=== PATIENT | male | born 1955 ===

== ENCOUNTER 2017-09-23 10:59 | Inpatient (IN) | payer OTHER ==
[2017-09-23] MEDS: SOD CHLORIDE 0.9% 1,000 ML IV ×2 (11:55→18:37)
[2017-09-23] MEDS: LACTATED RINGER'S 1,000 ML IV (11:55)
[2017-09-23 12:02] LABS: ADD MAN DIFF? NO
[2017-09-23 12:05] LABS: ABNORMAL IP MESSAGE 1; BASOPHILS % 0.3 % (0.0-2.0); HEMATOCRIT 48.2 % (42.0-52.0); HEMOGLOBIN 16.8 g/dl (14.0-18.0); LYMPHOCYTES % 5.1 % (15.0-51.0); MEAN CORPUSCULAR HEMOGLOBIN 30.5 pg (29.0-33.0); MEAN CORPUSCULAR HGB CONC 34.9 g/dl (32.0-37.0); MEAN CORPUSCULAR VOLUME 87.6 fl (82.0-101.0); MEAN PLATELET VOLUME 9.9 fl (7.4-10.4); MONOCYTES % 6.3 % (0.0-11.0); NEUTROPHIL # 15.4 10^3/ul (1.6-7.5); NEUTROPHILS % 87.5 % (39.0-77.0); PLATELET COUNT 341 10^3/UL (140-415); POSITIVE DIFF @See below; RED CELL DISTRIBUTION WIDTH 12.2 % (11.5-14.5)
[2017-09-23 12:05] LABS: WHITE BLOOD COUNT 17.6 10^3/ul (4.8-10.8)
[2017-09-23 12:22] LABS: ALANINE AMINOTRANSFERASE 23 IU/L (13-69); ALBUMIN 3.9 g/dl (3.3-4.9); ALKALINE PHOSPHATASE 93 IU/L (42-121); ANION GAP 16 (8-16); ASPARTATE AMINO TRANSFERASE 12 IU/L (15-46); BILIRUBIN,INDIRECT 0.8 mg/dl (0-1.1); BILIRUBIN,TOTAL 0.8 mg/dl (0.2-1.3); BLOOD UREA NITROGEN 8 mg/dl (7-20); CALCIUM 9.3 mg/dl (8.4-10.2); CARBON DIOXIDE 30 mmol/L (21-31); CHLORIDE 94 mmol/L (97-110); CREATININE 0.58 mg/dl (0.61-1.24); GLUCOSE 331 mg/dl (70-220); LIPASE 21 U/L (23-300); MAGNESIUM 1.8 mg/dl (1.7-2.5); PHOSPHORUS 4.3 mg/dl (2.5-4.9); POTASSIUM 3.8 mmol/L (3.5-5.1); SODIUM 136 mmol/L (135-144); TOTAL PROTEIN 6.9 g/dl (6.1-8.1)
[2017-09-23 12:39] LABS: TROPONIN-I < 0.012 ng/ml (0.00-0.12)
[2017-09-23 12:41] LABS: LACTIC ACID 3.1 mmol/L (0.5-2.0)
[2017-09-23 13:03] LABS: BAND NEUTROPHILS #M 3.8 10^3/ul (0.0-0.6); BAND NEUTROPHILS % (M) 22 % (0-4); LYMPHOCYTES # 0.2 10^3/ul (0.8-2.9); LYMPHOCYTES #M 0.1 10^3/ul (0.8-2.9); LYMPHOCYTES % (M) 1 % (15-51); MONOCYTE #M 1.7 10^3/ul (0.3-0.9); MONOCYTES % (M) 10 % (0-11); SEG NEUT #M 12.5 10^3/ul (1.7-7.5); SEGMENTED NEUTROPHILS (M) % 67 % (39-77)
[2017-09-23 13:04] LABS: MONOCYTE # 1.8 10^3/ul (0.3-0.9)
[2017-09-23 13:05] LABS: ANISOCYTOSIS 1+ (0-0); MICROCYTOSIS 1+ (0-0)
[2017-09-23] MEDS: PIPER-TAZO 3.375 GM IV (PMX) 50 ML IVPB ×2 (13:08→18:37)
[2017-09-23 13:35] LABS: MODE ROOM AIR; MetHgb Venous 0.3 %; Sample Type Blood venous; Site VENOUS LINE; Venous COHb 1.2 %; Venous Fraction OxyHgb 44.2 %; Venous Oxygen Sat 44.9 mmHG (55.0-75.0); Venous Total Hemglobin 15.9 g/dl
[2017-09-23 14:09] LABS: LACTIC ACID 2.9 mmol/L (0.5-2.0)
[2017-09-23] MEDS ORDERED: ACETAMINOPHEN 325 MG TAB PO (14:30)
[2017-09-23] MEDS ORDERED: ONDANSETRON 4 MG INJ IV (14:30)
[2017-09-23] MEDS ORDERED: NACL 0.9% 3 ML SYG IV (16:00)
[2017-09-23] MEDS: SOD CHLORIDE 0.9% 100 ML (16:58)
[2017-09-23] MEDS: IODIXANOL LOCM 100 ML BTL (16:58)
[2017-09-23] MEDS ORDERED: GLUCOSE GEL 15 GRAM TUBE PO ×2 (17:00)
[2017-09-23] MEDS ORDERED: DEXTROSE 50% 50 ML SYRINGE IV ×2 (17:00)
[2017-09-23] MEDS ORDERED: GLUCOSE GEL 15 GRAM TUBE BUCCAL (17:00)
[2017-09-23] MEDS ORDERED: GLUCAGON 1 MG INJ IM (17:00)
[2017-09-23] MEDS: INSULIN ASPART [NOVOLOG] 3 ML PEN SC ×3 (18:00→21:00)
[2017-09-23] MEDS: INSULIN GLARGINE [LANtus] 3 ML PEN SC (21:36)
[2017-09-23 22:52] LABS: ADD UMIC NO; UR ASCORBIC ACID 40 mg/dL (NEGATIVE); UR BILIRUBIN (Dip) NEGATIVE (NEGATIVE); UR BLOOD (Dip) NEGATIVE (NEGATIVE); UR CLARITY CLEAR (CLEAR); UR COLOR YELLOW (YELLOW); UR GLUCOSE (Dip) 3+ mg/dL (NEGATIVE); UR KETONES (Dip) 1+ mg/dL (NEGATIVE); UR LEUKOCYTE ESTERASE (Dip) NEGATIVE Leu/ul (NEGATIVE); UR NITRITE (Dip) NEGATIVE (NEGATIVE); UR SPECIFIC GRAVITY (Dip) 1.051 (1.003-1.030); UR TOTAL PROTEIN (Dip) NEGATIVE (NEGATIVE); UR UROBILINOGEN (Dip) NEGATIVE (NEGATIVE)
[2017-09-23] MEDS: DEXTROSE 5%-0.45% NACL 1,000 ML IV (23:47)
[2017-09-24 01:26] LABS: LACTIC ACID 1.3 mmol/L (0.5-2.0)
[2017-09-24] MEDS: PIPER-TAZO 3.375 GM IV (PMX) 50 ML IVPB ×2 (01:32→10:12)
[2017-09-24] MEDS: ACCU-CHEK XX (02:00)
[2017-09-24 06:31] LABS: WHITE BLOOD COUNT 7.5 10^3/ul (4.8-10.8)
[2017-09-24 06:31] LABS: HEMATOCRIT 38.6 % (42.0-52.0); HEMOGLOBIN 13.4 g/dl (14.0-18.0); MEAN CORPUSCULAR HEMOGLOBIN 30.2 pg (29.0-33.0); MEAN CORPUSCULAR HGB CONC 34.7 g/dl (32.0-37.0); MEAN CORPUSCULAR VOLUME 87.1 fl (82.0-101.0); MEAN PLATELET VOLUME 9.8 fl (7.4-10.4); PLATELET COUNT 266 10^3/UL (140-415); POSITIVE DIFF @See below; RED BLOOD COUNT 4.43 10^6/ul (4.70-6.10)
[2017-09-24 06:38] LABS: ADD MAN DIFF? YES
[2017-09-24] MEDS: INSULIN ASPART [NOVOLOG] 3 ML PEN SC ×6 (08:33→20:47)
[2017-09-24] MEDS: ENOXAPARIN 40 MG/0.4 ML SYG SC (08:34)
[2017-09-24 08:48] LABS: ALANINE AMINOTRANSFERASE 25 IU/L (13-69); ALBUMIN 2.3 g/dl (3.3-4.9); ALBUMIN/GLOBULIN RATIO 0.85; ALKALINE PHOSPHATASE 52 IU/L (42-121); ANION GAP 7 (8-16); ASPARTATE AMINO TRANSFERASE 13 IU/L (15-46); BILIRUBIN,INDIRECT 0.3 mg/dl (0-1.1); BILIRUBIN,TOTAL 0.3 mg/dl (0.2-1.3); BLOOD UREA NITROGEN 11 mg/dl (7-20); CALCIUM 7.9 mg/dl (8.4-10.2); CARBON DIOXIDE 27 mmol/L (21-31); CHLORIDE 103 mmol/L (97-110); GLUCOSE 130 mg/dl (70-220); SODIUM 134 mmol/L (135-144)
[2017-09-24 09:30] LABS: ANISOCYTOSIS 1+ (0-0); BAND NEUTROPHILS #M 2.8 10^3/ul (0.0-0.6); BAND NEUTROPHILS % (M) 38 % (0-4); BURR CELLS 1+ (0-0); HYPOCHROMASIA 1+ (0-0); LYMPHOCYTES #M 0.9 10^3/ul (0.8-2.9); LYMPHOCYTES % (M) 13 % (15-51); MONOCYTE #M 0.5 10^3/ul (0.3-0.9); MONOCYTES % (M) 7 % (0-11); MYELOCYTES % (M) 1 % (0-0); PLATELET ESTIMATE NORMAL; SEG NEUT #M 3.1 10^3/ul (1.7-7.5); SEGMENTED NEUTROPHILS (M) % 39 % (39-77); SMUDGE%M 2 % (0-0)
[2017-09-24] MEDS: DEXTROSE 5%-0.45% NACL 1,000 ML IV ×2 (13:48→20:24)
[2017-09-24] MEDS: NICOTINE (14 MG/24 HR) PATCH TRANSDERM (14:00)
[2017-09-24 14:03] LABS: HEMOGLOBIN A1C 12.4 % (0-5.9)
[2017-09-24 15:02] LABS: HAAIG REFLEX REFLEX FILED
[2017-09-24 15:07] LABS: HIV 1&2 ANTIBODY NEGATIVE (NEGATIVE)
[2017-09-24] MEDS: POTASSIUM CHLORIDE (SR) 20 MEQ TAB PO ×2 (15:07→17:11)
[2017-09-24 16:09] LABS: PREALBUMIN 6.4 mg/dl (17.6-36.0)
[2017-09-24 16:53] LABS: HEPATITIS B CORE ANTIBODY NEGATIVE (NEGATIVE); HEPATITIS C VIRAL ANTIBODY NEGATIVE (NEGATIVE)
[2017-09-24] MEDS: BISACODYL (EC) 5 MG TAB PO (17:11)
[2017-09-24] MEDS: REPAGLINIDE 1 MG TAB PO (17:40)
[2017-09-24] MEDS: MAGNESIUM CITRATE 300 ML BTL PO (17:40)
[2017-09-24] MEDS ORDERED: metFORMIN 500 MG TAB PO (17:50)
[2017-09-24 18:15] LABS: HEPATITIS B SURFACE ANTIGEN NEGATIVE (NEGATIVE)
[2017-09-24] MEDS: CIPROFLOXACIN 400MG/D5W 200 ML IVPB (20:25)
[2017-09-24] MEDS: POLYETHYLENE GLYCOL 3350 119 GM POWDER PO (20:25)
[2017-09-24] MEDS: INSULIN GLARGINE [LANtus] 3 ML PEN SC (20:36)
[2017-09-24] MEDS: metroNIDAZOLE 500 MG/NS (PMX) 100 ML IVPB (21:59)
[2017-09-25] MEDS: ACCU-CHEK XX (02:44)
[2017-09-25] MEDS: DEXTROSE 5%-0.45% NACL 1,000 ML IV ×3 (04:06→18:12)
[2017-09-25] MEDS: POLYETHYLENE GLYCOL 3350 119 GM POWDER PO (05:03)
[2017-09-25] MEDS: metroNIDAZOLE 500 MG/NS (PMX) 100 ML IVPB ×4 (05:03→22:25)
[2017-09-25] MEDS: BISACODYL (EC) 5 MG TAB PO (06:34)
[2017-09-25 07:24] LABS: ANION GAP 8 (8-16); BLOOD UREA NITROGEN 9 mg/dl (7-20); CALCIUM 7.8 mg/dl (8.4-10.2); CARBON DIOXIDE 28 mmol/L (21-31); CHLORIDE 103 mmol/L (97-110); CREATININE 0.47 mg/dl (0.61-1.24); GLUCOSE 90 mg/dl (70-220); SODIUM 136 mmol/L (135-144)
[2017-09-25 07:33] LABS: POTASSIUM 2.9 mmol/L (3.5-5.1)
[2017-09-25] MEDS: REPAGLINIDE 1 MG TAB PO ×3 (08:00→17:42)
[2017-09-25] MEDS: INSULIN ASPART [NOVOLOG] 3 ML PEN SC ×4 (08:15→21:21)
[2017-09-25] MEDS: ENOXAPARIN 40 MG/0.4 ML SYG SC (08:31)
[2017-09-25] MEDS: NICOTINE (14 MG/24 HR) PATCH TRANSDERM (09:00)
[2017-09-25] MEDS: CIPROFLOXACIN 400MG/D5W 200 ML IVPB ×2 (09:11→21:11)
[2017-09-25] MEDS: POTASSIUM CHLORIDE 30 MEQ in DEXTROSE 5% 250 ML IVPB (09:18)
[2017-09-25] MEDS: POTASSIUM CHLORIDE 20 MEQ in DEXTROSE 5% 100 ML IVPB (12:40)
[2017-09-25 13:42] LABS: POTASSIUM 3.5 mmol/L (3.5-5.1)
[2017-09-25] MEDS: INSULIN GLARGINE [LANtus] 3 ML PEN SC (21:21)
[2017-09-26] MEDS: ACCU-CHEK XX (01:53)
[2017-09-26] MEDS ORDERED: VITAMIN A & D 5 GM OINT PACKET TOP (04:46)
[2017-09-26] MEDS: metroNIDAZOLE 500 MG/NS (PMX) 100 ML IVPB ×2 (05:48→13:58)
[2017-09-26 05:54] LABS: ADD MAN DIFF? NO
[2017-09-26 06:01] LABS: BASOPHILS % 0.3 % (0.0-2.0); EOSINOPHILS % 0.5 % (0.0-7.0); HEMOGLOBIN 13.9 g/dl (14.0-18.0); LYMPHOCYTES # 1.4 10^3/ul (0.8-2.9); MEAN CORPUSCULAR HEMOGLOBIN 29.8 pg (29.0-33.0); MEAN CORPUSCULAR HGB CONC 34.8 g/dl (32.0-37.0); MEAN CORPUSCULAR VOLUME 85.7 fl (82.0-101.0); MEAN PLATELET VOLUME 9.7 fl (7.4-10.4); MONOCYTE # 0.4 10^3/ul (0.3-0.9); MONOCYTES % 6.4 % (0.0-11.0); NEUTROPHIL # 4.1 10^3/ul (1.6-7.5); NEUTROPHILS % 69.3 % (39.0-77.0); PLATELET COUNT 313 10^3/UL (140-415); RED BLOOD COUNT 4.67 10^6/ul (4.70-6.10); RED CELL DISTRIBUTION WIDTH 11.6 % (11.5-14.5)
[2017-09-26 06:27] LABS: ANION GAP 9 (8-16); BLOOD UREA NITROGEN 8 mg/dl (7-20); CALCIUM 7.9 mg/dl (8.4-10.2); CARBON DIOXIDE 28 mmol/L (21-31); CHLORIDE 102 mmol/L (97-110); CREATININE 0.46 mg/dl (0.61-1.24); GLUCOSE 125 mg/dl (70-220); MAGNESIUM 1.8 mg/dl (1.7-2.5); POTASSIUM 3.2 mmol/L (3.5-5.1); SODIUM 136 mmol/L (135-144)
[2017-09-26] MEDS: INSULIN ASPART [NOVOLOG] 3 ML PEN SC ×2 (07:59→12:17)
[2017-09-26] MEDS: REPAGLINIDE 1 MG TAB PO ×2 (08:06→12:36)
[2017-09-26] MEDS: CIPROFLOXACIN 400MG/D5W 200 ML IVPB (08:06)
[2017-09-26] MEDS: ENOXAPARIN 40 MG/0.4 ML SYG SC (08:08)
[2017-09-26] MEDS: NICOTINE (14 MG/24 HR) PATCH TRANSDERM (08:09)
[2017-09-26] MEDS: DEXTROSE 5%-0.45% NACL 1,000 ML IV (08:09)
[2017-09-26] MEDS ORDERED: POTASSIUM CHLORIDE 30 MEQ in SOD CHLORIDE 0.9% 150 ML IVPB (12:30)
[2017-09-26] MEDS ORDERED: LOPERAMIDE 2 MG CAP PO (12:30)
[2017-09-26] MEDS: POTASSIUM CHLORIDE 50 ML IVPB ×2 (13:16→14:00)
[2017-09-26] MEDS: POTASSIUM CHLORIDE (SR) 20 MEQ TAB PO (13:58)
[2017-09-26] MEDS ORDERED: INSULIN GLARGINE [LANtus] 3 ML PEN SC (20:00)
== END 2017-09-26 16:25 | disposition home or self-care (01) | DRG 872 ==
LOC: E/R 10:59 → MS2 14:10
PROVIDERS: Internal Medicine
PROC: 0DBN8ZZ Excision of Sigmoid Colon, Via Natural or Artificial Opening Endoscopic (ICD-10-PCS; principal; 2017-09-25 13:30)
PROC: 0DBC8ZX Excision of Ileocecal Valve, Via Natural or Artificial Opening Endoscopic, Diagnostic (ICD-10-PCS; 2017-09-25 13:30)
PROC: 0DBE8ZX Excision of Large Intestine, Via Natural or Artificial Opening Endoscopic, Diagnostic (ICD-10-PCS; 2017-09-25 13:30)
PROC: 4A033R1 Measurement of Arterial Saturation, Peripheral, Percutaneous Approach (ICD-10-PCS; 2017-09-25 13:30)
DX: A41.9 Sepsis, unspecified organism (principal); R64 Cachexia; E44.0 Moderate protein-calorie malnutrition; K51.00 Ulcerative (chronic) pancolitis without complications; E11.65 Type 2 diabetes mellitus with hyperglycemia; Z68.1 Body mass index [BMI] 19.9 or less, adult; R65.20 Severe sepsis without septic shock; E87.6 Hypokalemia; K63.5 Polyp of colon; F17.210 Nicotine dependence, cigarettes, uncomplicated; Z59.0 Homelessness; A03.3 Shigellosis due to Shigella sonnei; E86.0 Dehydration; D17.79 Benign lipomatous neoplasm of other sites; K64.4 Residual hemorrhoidal skin tags; Z96.642 Presence of left artificial hip joint; Z91.14 Patient's other noncompliance with medication regimen; Z85.46 Personal history of malignant neoplasm of prostate
CPT/HCPCS: 36415; 71010; 74177; 80048; 80053; 81003; 82803; 82962; 83036; 83605; 83690; 83735; 84100; 84132; 84134; 84484; 85025; 86703; 86704; 86709; 86803; 87040; 87045; 87075; 87086; 87177; 87340; 88305; 96374; 99291-25

== ENCOUNTER 2017-10-08 00:31 | Emergency (ER) | payer OTHER ==
[2017-10-08] MEDS: LIDOCAINE 1% (MDV) 20 ML INJ SC (02:32)
[2017-10-08] MEDS: CLINDAMYCIN 300 MG INJ IM (03:10)
== END 2017-10-08 03:19 | disposition home or self-care (01) ==
LOC: FTE 00:31
DX: L03.012 Cellulitis of left finger (principal); F17.210 Nicotine dependence, cigarettes, uncomplicated; Z96.642 Presence of left artificial hip joint; Z79.84 Long term (current) use of oral hypoglycemic drugs
CPT/HCPCS: 26011; 96372; 99284-25